=== PATIENT | male | born 2000 ===

== ENCOUNTER 2020-04-15 07:20 | Emergency (ER) | payer SELFPAY ==
[~2020-04-15] VITALS: Ht 182 cm; Wt 118.0 kg
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
--- NOTE | 2020-04-15 08:41 | Diagnostic Imaging Report ---
EXAMINATION: Right foot at 8:16 AM INDICATION: Foot pain 3 views were obtained. There are no prior studies available for comparison. There is no fracture, dislocation or acute bony abnormality evident. The Lisfranc joint seems well maintained. The soft tissues are unremarkable. IMPRESSION: There is no evidence for an acute bony abnormality. Dictated by: Dictated on workstation # [id number]
[2020-04-15 08:56] VITALS: BP 138/72
== END 2020-04-15 08:57 | disposition home or self-care (01) ==
LOC: ER 07:23
DX: S90.31XA Contusion of right foot, initial encounter (principal); V78.4XXA Person boarding or alighting from bus injured in noncollision transport accident, initial encounter
CPT/HCPCS: 73630